=== PATIENT | male | born 2000 | race African-American/Black ===

== ENCOUNTER 2021-04-30 18:03 | Emergency (ER) | payer OTHER ==
[2021-04-30 19:29] VITALS: BP 138/76; PULSE 78; RESP 20; TEMP 98.1
--- NOTE | 2021-04-30 20:06 | XR ---
EXAMINATION TYPE: XR hand complete LT DATE OF EXAM: 04/30/2021 COMPARISON: NONE HISTORY: Pain TECHNIQUE: 4 views FINDINGS: I see no fracture nor dislocation. There is some calcification at the anterior distal shaft of the fifth metacarpal likely related to an old injury. The fingers are intact. Carpal bones are in tact. IMPRESSION: No fracture seen.
--- NOTE | 2021-04-30 21:42 | ED ---
Upper Extremity HPI - General Chief Complaint: Extremity Injury, Upper Stated Complaint: IHS/Lt Hand Injury Time Seen by Provider: 04/30/21 21:10 Source: patient Mode of arrival: ambulatory Limitations: no limitations - History of Present Illness Initial Comments: 20-year-old male presenting to the emergency department with a chief complaint of left hand injury. Patient reports a large garbage and applied a lateral force to his left hand. Patient reports obvious swelling in the left hand but denies any pain in the wrist. States he still able to grasp but just not with good strength. Still able to move his fingers. Denies any paresthesias. Reports the pain is sharp 6/10. Denies taking medication to the symptoms. - Related Data Allergies Allergy/AdvReac Type Severity Reaction Status Date / Time No Known Allergies Allergy Verified 04/30/21 19:29 Review of Systems ROS Statement: Those systems with pertinent positive or pertinent negative responses have been documented in the HPI. ROS Other: All systems not noted in ROS Statement are negative. Past Medical History Past Medical History: No Reported History History of Any Multi-Drug Resistant Organisms: None Reported Past Surgical History: No Surgical Hx Reported Past Psychological History: No Psychological Hx Reported Smoking Status: Current some day smoker Past Alcohol Use History: None Reported Past Drug Use History: Marijuana General Exam Limitations: no limitations General appearance: alert, in no apparent distress Head exam: Present: atraumatic, normocephalic, normal inspection Eye exam: Present: normal appearance Pupils: Present: normal accommodation ENT exam: Present: normal exam, normal oropharynx, mucous membranes moist Neck exam: Present: normal inspection, full ROM. Absent: tenderness Respiratory exam: Present: normal lung sounds bilaterally. Absent: respiratory distress Cardiovascular Exam: Present: regular rate, normal rhythm, normal heart sounds. Absent: systolic murmur Extremities exam: Present: normal inspection, full ROM, tenderness (Tenderness in the middle of the hand. No scaphoid tenderness.), normal capillary refill, other (Sensation intact in the left hand). Absent: pedal edema, joint swelling, calf tenderness Back exam: Present: normal inspection, full ROM Neurological exam: Present: alert, oriented X3 Psychiatric exam: Present: normal affect, normal mood Skin exam: Present: warm, dry, intact, normal color Course Vital Signs 04/30/21 19:27 Temperature 98.1 F Pulse Rate 78 Respiratory 20 Rate Blood Pressure 138/76 O2 Sat by Pulse 99 Oximetry Medical Decision Making - Medical Decision Making 20-year-old male presents to emergency Department with chief complaint of left hand injury. On physical examination, patient is neurovascularly intact. X-ray of the hand shows no acute findings. Patient suffered a contusion to the left hand. Strict return parameters were thoroughly discussed patient is understanding and agreeable. Disposition Clinical Impression: Sprain of hand, left Disposition: HOME SELF-CARE Condition: Stable Instructions (If sedation given, give patient instructions): Hand Sprain (ED) Additional Instructions: Please return to the Emergency Department if symptoms worsen or any other concerns. Is patient prescribed a controlled substance at d/c from ED?: No Referrals: None,Stated [Primary Care Provider] - 1-2 days Earle Sneed MD [STAFF PHYSICIAN] - 1-2 days Time of Disposition: 21:42
== END 2021-04-30 22:09 | disposition home or self-care (01) ==
LOC: EC 18:03
DX: S63.92XA Sprain of unspecified part of left wrist and hand, initial encounter (principal); F17.200 Nicotine dependence, unspecified, uncomplicated; F12.90 Cannabis use, unspecified, uncomplicated; X58.XXXA Exposure to other specified factors, initial encounter; Y99.0 Civilian activity done for income or pay
CPT/HCPCS: 99283

== ENCOUNTER → 2021-05-02 | Outpatient (CLI) | payer OTHER ==
--- NOTE | 2021-05-02 15:18 | XR ---
EXAMINATION TYPE: XR wrist complete LT DATE OF EXAM: 05/02/2021 COMPARISON: 04/30/2021 HISTORY: 20-year-old male S63.8X2A TECHNIQUE: 4 views FINDINGS: Bony irregularity involving the fifth metacarpal shaft compatible with old healed fracture deformity. There is some soft tissue swelling across the hand. No acute fracture, subluxation, dislocation is s een. IMPRESSION: Soft tissue swelling. Old healed fracture deformity fifth metacarpal shaft. No acute osseous abnormal ity seen.
== END | disposition home or self-care (01) ==
LOC: RADXRMAIN 14:56
PROVIDERS: ATTEND Emergency Medicine
DX: M25.432 Effusion, left wrist (principal)

== ENCOUNTER → 2021-05-07 | Outpatient (CLI) | payer OTHER ==
--- NOTE | 2021-05-07 14:04 | XR ---
EXAMINATION TYPE: XR hand complete LT DATE OF EXAM: 05/07/2021 COMPARISON: 05/02/2021 HISTORY: Pain TECHNIQUE: Three views are submitted. FINDINGS: The osseous structures are intact. The joint spaces are preserved and there is no acute fracture or dislocation. Cortical thickening fifth metacarpal. IMPRESSION: 1. No definite acute fracture or dislocation if symptoms persist, follow-up study in 7 to 10 days wo uld be suggested
== END | disposition home or self-care (01) ==
LOC: RADXRMAIN 13:43
PROVIDERS: ATTEND Emergency Medicine
DX: M79.642 Pain in left hand (principal)